=== PATIENT | male | born 1960 | race Caucasian/White ===

== ENCOUNTER 2017-03-17 12:00 | Inpatient (IN) | payer MEDICARE ==
[~2017-03-17] VITALS: Ht 195.6 cm; Wt 67.7 kg
[2017-03-17] MEDS ORDERED: RITO100T PO (12:06)
[2017-03-17] MEDS ORDERED: ATAZ150 PO (12:06)
[2017-03-17] MEDS ORDERED: TENO300 PO (12:06)
[2017-03-17] MEDS ORDERED: ABAC1TAB17 PO (12:06)
[2017-03-17] MEDS ORDERED: DIPH25 PO (12:06)
[2017-03-17] MEDS ORDERED: SULF1TAB3 PO (12:11)
[2017-03-17] MEDS ORDERED: LEVO50 PO (12:11)
[2017-03-17] MEDS ORDERED: FLUT44HFA IH (12:11)
[2017-03-17] MEDS ORDERED: MULT-30 PO (12:11)
[2017-03-17] MEDS ORDERED: ALBUTEROL SULFATE 2.5 MG/0.5 ML NEB SOLUTION NEB ONE (12:15)
[2017-03-17] MEDS ORDERED: IPRATROPIUM BROMIDE 0.5 MG/2.5 ML NEB SOLUTION NEB ONE (12:15)
[2017-03-17] MEDS ORDERED: MethylPREDNISolone SOD SUCC 125 MG/2 ML VIAL IVP ONE (12:45)
[2017-03-17 12:56] LABS: BASOPHILS # (AUTO) 0.02 K/uL (0.00-0.20); BASOPHILS % (AUTO) 0.5 % (0.0-2.0); EOSINOPHILS # (AUTO) 0.04 K/uL (0.00-0.70); EOSINOPHILS % (AUTO) 0.82 % (1.0-6.0); HEMATOCRIT 39.3 % (41-53); HEMOGLOBIN 13.2 g/dL (13.5-17.5); LYMPHOCYTES # (AUTO) 1.1 K/uL (1.0-4.8); LYMPHOCYTES % (AUTO) 25.4 % (22.0-44.0); MEAN CORPUSCULAR HEMOGLOBIN 29.4 pg (26.0-34.0); MEAN CORPUSCULAR HGB CONC 33.6 G/dL (31.0-37.0); MEAN CORPUSCULAR VOLUME 87 fL (80-100); MONOCYTES # (AUTO) 0.5 K/uL (0.1-1.0); MONOCYTES % (AUTO) 10.7 % (2.0-9.0); NEUTROPHILS # (AUTO) 2.8 K/uL (1.8-7.7); NEUTROPHILS % (AUTO) 62.6 % (40.0-70.0); PLATELET COUNT (AUTO) 127 K/uL (150-450); RED CELL DISTRIBUTION WIDTH 14.1 % (11.5-14.5); WHITE BLOOD COUNT (AUTO) 4.4 K/uL (4.5-11.0)
[2017-03-17 13:14] LABS: B-TYPE NATRIURETIC PEPTIDE 20 pg/mL (0-100)
[2017-03-17 13:18] LABS: INFLUENZA TYPE B POSITIVE FOR TYPE B (NEGATIVE)
[2017-03-17] MEDS ORDERED: IBUPROFEN 600 MG TABLET PO ONE (13:30)
[2017-03-17] MEDS ORDERED: OSELTAMIVIR PHOSPHATE 75 MG CAPSULE PO ONE (13:30)
[2017-03-17 13:31] LABS: ANION GAP 9 mmol/L (8-16); CALCIUM, TOTAL 8.2 mg/dL (8.8-10.5); CARBON DIOXIDE 26 mmol/L (22-29); CHLORIDE 99 mmol/L (98-107); GLOMERULAR FILTR. RATE CALC > 60 mL/min (>60); POTASSIUM 3.8 mmol/L (3.5-5.1); SODIUM SERUM 134 mmol/L (136-145); UREA NITROGEN, BLOOD 13 mg/dL (7-18)
[2017-03-17 13:36] LABS: ALANINE AMINOTRANSFERASE 26 U/L (12-78); ALBUMIN 3.3 g/dL (3.4-5.0); ASPARTATE AMINOTRANSFERASE 20 U/L (15-37); BILIRUBIN,TOTAL 0.6 mg/dL (0.1-1.0); TOTAL PROTEIN, SERUM 7.2 g/dL (6.4-8.2)
[2017-03-17] MEDS ORDERED: ACETAMINOPHEN 325 MG TABLET PO PRN ×2 (13:45→14:15)
[2017-03-17] MEDS ORDERED: 0.9% SODIUM CHLORIDE 10 ML SYRINGE IVP PRN (13:45)
[2017-03-17] MEDS: ALBUTEROL SULFATE 2.5 MG/0.5 ML NEB SOLUTION NEB SCH ×2 (13:46→19:37)
[2017-03-17] MEDS: IPRATROPIUM BROMIDE 0.5 MG/2.5 ML NEB SOLUTION NEB SCH ×2 (13:46→19:37)
[2017-03-17 13:51] LABS: LACTIC ACID 1.1 mmol/L (0.4-2.0)
[2017-03-17] MEDS ORDERED: MAGNESIUM HYDROXIDE SUSPENSION 30 ML UDCUP PO PRN (14:15)
[2017-03-17] MEDS ORDERED: SODIUM CHLORIDE 0.9% 1,000 ML IV ONE (14:15)
[2017-03-17] MEDS ORDERED: ALBUTEROL SULFATE 2.5 MG/0.5 ML NEB SOLUTION NEB PRN (14:15)
[2017-03-17 14:34] VITALS: BP 119/68
[2017-03-17 16:00] VITALS: BP 117/73
[2017-03-17] MEDS: MULTIVITAMINS WITH MINERALS, THERAPEUTIC TABLET PO SCH (19:28)
[2017-03-17 19:30] VITALS: BP 95/59
[2017-03-17] MEDS: DOCUSATE SODIUM 100 MG CAPSULE PO SCH (20:32)
[2017-03-17] MEDS: HEPARIN SODIUM,PORCINE 5,000 UNITS/ML VIAL SQ SCH (20:32)
[2017-03-17] MEDS: OSELTAMIVIR PHOSPHATE 75 MG CAPSULE PO SCH (21:38)
[2017-03-17 23:58] VITALS: BP 108/56
[2017-03-18 04:00] VITALS: BP 116/64
[2017-03-18 07:27] LABS: BASOPHILS % (AUTO) 0.2 % (0.0-2.0); EOSINOPHILS % (AUTO) 0 % (1.0-6.0); HEMATOCRIT 37.7 % (41-53); HEMOGLOBIN 12.9 g/dL (13.5-17.5); LYMPHOCYTES # (AUTO) 0.5 K/uL (1.0-4.8); MEAN CORPUSCULAR HGB CONC 34.2 G/dL (31.0-37.0); MEAN CORPUSCULAR VOLUME 88 fL (80-100); MONOCYTES # (AUTO) 0.1 K/uL (0.1-1.0); MONOCYTES % (AUTO) 3.7 % (2.0-9.0); NEUTROPHILS # (AUTO) 2.4 K/uL (1.8-7.7); NEUTROPHILS % (AUTO) 80.1 % (40.0-70.0); PLATELET COUNT (AUTO) 177 K/uL (150-450); RED CELL DISTRIBUTION WIDTH 14.2 % (11.5-14.5); WHITE BLOOD COUNT (AUTO) 2.9 K/uL (4.5-11.0)
[2017-03-18 07:45] LABS: ALANINE AMINOTRANSFERASE 30 U/L (12-78); ALBUMIN 3.4 g/dL (3.4-5.0); ANION GAP 9 mmol/L (8-16); ASPARTATE AMINOTRANSFERASE 20 U/L (15-37); BILIRUBIN,TOTAL 0.3 mg/dL (0.1-1.0); CALCIUM, TOTAL 9.1 mg/dL (8.8-10.5); CARBON DIOXIDE 27 mmol/L (22-29); CHLORIDE 99 mmol/L (98-107); CREATININE 0.93 mg/dL (0.60-1.30); GLOMERULAR FILTR. RATE CALC > 60 mL/min (>60); POTASSIUM 4.2 mmol/L (3.5-5.1); SODIUM SERUM 135 mmol/L (136-145); TOTAL PROTEIN, SERUM 7.8 g/dL (6.4-8.2); UREA NITROGEN, BLOOD 20 mg/dL (7-18)
[2017-03-18 07:56] VITALS: BP 127/74
[2017-03-18] MEDS ORDERED: PANTOPRAZOLE SODIUM 40 MG DR TABLET PO SCH (09:00)
[2017-03-18] MEDS: DOCUSATE SODIUM 100 MG CAPSULE PO SCH (09:03)
[2017-03-18] MEDS: MULTIVITAMINS WITH MINERALS, THERAPEUTIC TABLET PO SCH (09:03)
[2017-03-18] MEDS: HEPARIN SODIUM,PORCINE 5,000 UNITS/ML VIAL SQ SCH (09:04)
[2017-03-18] MEDS: OSELTAMIVIR PHOSPHATE 75 MG CAPSULE PO SCH (10:29)
[2017-03-18 11:26] VITALS: BP 115/78
[2017-03-18] MEDS ORDERED: OSEL75 PO (11:48)
== END 2017-03-18 13:15 | disposition home or self-care (01) | DRG 193 ==
LOC: EMS 12:01 → 4E 13:44
PROVIDERS: ADMIT Internal Medicine; ATTEND Internal Medicine
DX: J10.1 Influenza due to other identified influenza virus with other respiratory manifestations (principal); E43 Unspecified severe protein-calorie malnutrition; B20 Human immunodeficiency virus [HIV] disease; E03.9 Hypothyroidism, unspecified; J44.9 Chronic obstructive pulmonary disease, unspecified; Z91.19 Patient's noncompliance with other medical treatment and regimen; Z88.8 Allergy status to other drugs, medicaments and biological substances; Z91.013 Allergy to seafood
CPT/HCPCS: 83605; 87040; 87804; 93005; 94640; 97161; 97530; 99285; J1644; J2930; J7030

== ENCOUNTER 2017-03-21 18:18 | Emergency (ER) | payer MEDICARE ==
[~2017-03-21] VITALS: Ht 195.6 cm; Wt 59.1 kg
[~2017-03-21 18:18] MED LIST: ABAC1TAB17 PO; ATAZ150 PO; FLUT44HFA IH; LEVO50 PO; MULT-30 PO; OSEL75 PO; RITO100T PO; SULF1TAB3 PO; TENO300 PO
[2017-03-21] MEDS ORDERED: OSEL75CA17 PO (18:29)
[2017-03-21] MEDS ORDERED: BACTDSB PO (18:29)
[2017-03-21] MEDS ORDERED: DOXY100C2 PO (18:29)
[2017-03-21] MEDS ORDERED: IPRATROPIUM BROMIDE 0.5 MG/2.5 ML NEB SOLUTION NEB ONE (21:00)
[2017-03-21] MEDS ORDERED: ALBUTEROL SULFATE 2.5 MG/0.5 ML NEB SOLUTION NEB ONE (21:00)
[2017-03-21] MEDS ORDERED: ALBUTEROL SULFATE HFA 90 MCG/PUFF 8 GM INHALER IH ONE (21:45)
[2017-03-21 22:48] VITALS: BP 125/67
== END 2017-03-21 23:19 | disposition home or self-care (01) ==
LOC: EMS 18:19
DX: J40 Bronchitis, not specified as acute or chronic (principal); J44.9 Chronic obstructive pulmonary disease, unspecified; E03.9 Hypothyroidism, unspecified; Z87.891 Personal history of nicotine dependence; Z91.013 Allergy to seafood
CPT/HCPCS: 71020; 94640; 99284; J3535